=== PATIENT | male | born 1990 | race Caucasian/White ===

== ENCOUNTER 2016-03-02 08:09 | Emergency (ER) | payer BC, MEDICAID ==
[~2016-03-02] VITALS: Ht 188 cm; Wt 68.0 kg
--- OUTSIDE RECORDS SUMMARY | 2016-03-02 08:16 | XMS REPORT ---
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
[2016-03-02] MEDS ORDERED: DEXAMETHASONE PF 10 MG/ML (DECADRON) VIAL IM STA (08:28)
[2016-03-02] MEDS ORDERED: HYDROcodone/APAP 10 MG/325 MG (LORTAB) TAB PO STA (08:28)
--- NOTE | 2016-03-02 08:33 | ED EENT ---
History of Present Illness General Chief Complaint: Dental Problems/Pain Stated Complaint: LEFT SIDED JAW PAIN Nursing Triage Note: patient reports jaw pain starting on saturday. states hurts to talk, open mouth, eat, or smoke. reports taking ibuprofen without relief Source: patient Exam Limitations: no limitations History of Present Illness Time seen by provider: 08:15 Initial Comments Here with report of left jaw pain at the TMJ. Denies any recent injury. Complains of pain when opening the mouth or swallowing. States pain radiates to the ear. Never had pain like this before Timing/Duration: gradual, yesterday Severity: moderate Location: mouth Associated Symptoms: No cough, No nasal congestion/drainage, No tooth pain, No voice change Allergies and Home Medications Allergies Uncoded Allergies: peaches (Allergy, Unknown, 03/02/16) Review of Systems Constitutional: see HPINo chills, No fever Ears: See HPI PainDenies Purulent Discharge Nose: no symptoms reported Mouth: see HPIdenies loose teeth Throat: denies neck stiffness, denies hoarse, denies aphonia Respiratory: no symptoms reportedNo short of breath Cardiovascular: no symptoms reported Gastrointestinal: no symptoms reported Musculoskeletal: joint pain joint swelling Past Uermfwq-Xwjnwd-Ygypax Hx Patient Social History Alcohol Use: Occasionally Uses Recreational Drug Use: No Smoking Status: Current Everyday Smoker Recent Foreign Travel: No Contact w/Someone Who Travel: No Recent Infectious Disease Expo: No Surgeries HX Surgeries: Yes Surgeries: Orthopedic Respiratory Hx Respiratory Disorders: No Cardiovascular Hx Cardiac Disorders: Yes Cardiac Disorders: Hypertension Gastrointestinal Hx Gastrointestinal Disorders: No Musculoskeletal Hx Musculoskeletal Disorders: Yes (shoulder problems and surgery) Reviewed Nursing Assessment Reviewed/Agree w Nursing PMH: Yes Physical Exam Vital Signs Vital Sign - Last 12Hours 03/02/16 08:24 Temp 98.6 Pulse 90 Resp 18 B/P 140/76 Pulse Ox 99 O2 Delivery Room Air General Appearance: WD/WN no apparent distress Eyes: bilateral eye EOMI, bilateral eye PERRL, bilateral eye normal inspection Ears: bilateral ear TM normal, bilateral ear auricle normal, bilateral ear canal normal Nose: normal inspection Mouth/Throat: other (normal dentition. Tender along the angle of the jaw on the left without obvious abscess or infection internally or externally. Tender at the left TMJ.) Neck: full range of motion supple Cardiovascular: regular rate, rhythm no murmur Respiratory: lungs clear normal breath sounds Gastrointestinal: non tender soft Neurologic/Psychiatric: alert oriented x 3 Skin: normal color warm/dry Progress/Results/Core Measures Results/Orders My Orders Orders-JACKI DISLA MD Dexamethasone Pf Injection (Decadron Pf (03/02/16 08:28) Hydrocodone/Apap 10/325 Tablet (Lortab 1 (03/02/16 08:28) Vital Signs/I&O Vital Sign - Last 12Hours 03/02/16 08:24 Temp 98.6 Pulse 90 Resp 18 B/P 140/76 Pulse Ox 99 O2 Delivery Room Air Blood Pressure Mean: 97 Progress Note : Progress Note Seen and evaluated. Patient is able to take the day off of work. He is chronically on hydrocodone 5/325. He has not taken a dose today. Hydrocodone 10/325 one tab by mouth given. Decadron 10 mg IM for possible TMJ. Ice pack given. Patient will continue his home dosing of ibuprofen or Naprosyn. Discharged home with return precautions. Patient verbalize understanding instructions and agreement with plan. Departure Impression Impression: Primary Impression: Arthralgia of left temporomandibular joint Disposition: HOME, SELF-CARE Condition: Stable Departure-Patient Inst. Decision time for Depature: 08:37 Referrals: NO,LOCAL PHYSICIAN (PCP) Primary Care Physician Patient Instructions: Temporomandibular Joint (TMJ) Disorders (DC) Add. Discharge Instructions: All discharge instructions reviewed with patient and/or family. Voiced understanding. Continue home medications as directed. You may take your ibuprofen or Naprosyn but not both. Clear liquid diet or soft diet for the next 4-7 days. Follow-up with your doctor next week for recheck and further evaluation. Return for worsening, fever, vomiting, weakness, breathing problems or other concerns as needed. JACKI DISLA MD Mar 02, 2016 08:33
[2016-03-02] MEDS ORDERED: HYDR-3820 PO (08:36)
[2016-03-02] MEDS ORDERED: BUDE10.2 INH (08:36)
[2016-03-02] MEDS ORDERED: RT-ALBUINH INH (08:36)
[2016-03-02 08:54] VITALS: BP 140/76
== END 2016-03-02 08:54 | disposition home or self-care (01) ==
LOC: ER 08:12
DX: M26.622 Arthralgia of left temporomandibular joint (principal); I10 Essential (primary) hypertension; F17.210 Nicotine dependence, cigarettes, uncomplicated; Z79.891 Long term (current) use of opiate analgesic
CPT/HCPCS: 96372; 99282